=== PATIENT | male | born 1995 | race Caucasian/White ===

== ENCOUNTER 2021-02-18 07:16 | Day surgery (SDC) | payer OTHER ==
[~2021-02-18 07:16] MED LIST: Lactated Ringers 1,000 ML IV SCH; Lidocaine 1%/Sod Bicarbonate in NS 8.4% 1 ML Syringe IDERM PRN; Sodium Chloride 0.9% 10 ML Syringe FLUSH PRN
--- NOTE | 2021-02-18 07:41 | PCM.PREANE ---
Preanesthetic Assessment - Anesthesia/Transfusion/Family Hx Anesthesia History: No Prior Anesthesia Family History of Anesthesia Reaction: No Transfusion History: No Prior Transfusion(s) Intubation History: Unknown - Review of Systems General: No Symptoms Pulmonary: No Symptoms Cardiovascular: No Symptoms Neurological: No Symptoms Other: Reports: None - Physical Assessment NPO Status Date: 02/17/21 NPO Status Time: 21:00 ASA Class: 3 Mental Status: Alert & Oriented x3 Dentition: Reports: Normal Dentition Thyro-Mental Finger Breadths: 3 Mouth Opening Finger Breadths: 3 ROM/Head Extension: Full Lungs: Clear to Auscultation, Normal Respiratory Effort - Allergies Allergies/Adverse Reactions: Allergies Allergy/AdvReac Type Severity Reaction Status Date / Time No Known Allergies Allergy Verified 02/17/21 14:27 - Acknowledgements Anesthesia Type Planned: MAC Pt an Appropriate Candidate for the Planned Anesthesia: Yes Alternatives and Risks of Anesthesia Discussed w Pt/Guardian: Yes Pt/Guardian Understands and Agrees with Anesthesia Plan: Yes PreAnesthesia Questionnaire HEENT History: Reports: Allergic Rhinitis, Other (See Below) Other HEENT History: eustachian tube dysfunction, wears glasses, has contacts Cardiovascular History: Reports: High Cholesterol Respiratory History: Reports: Other (See Below) Other Respiratory History: snoring Gastrointestinal History: Reports: GERD, Other (See Below) Other Gastrointestinal History: dysphagia Genitourinary History: Reports: None SLIP COVER ESTIMATOR History: Reports: None Musculoskeletal History: Reports: None Neurological History: Reports: None Psychiatric History: Reports: Anxiety, Depression, Other (See Below) Other Psychiatric History: insomnia Endocrine/Metabolic History: Reports: Obesity/BMI 30+, Vitamin D Deficiency Hematologic History: Reports: None Immunologic History: Reports: None Oncologic (Cancer) History: Reports: None Dermatologic History: Reports: None - Infectious Disease History Infectious Disease History: Reports: None - Past Surgical History Head Surgeries/Procedures: Reports: None HEENT Surgical History: Reports: None Cardiovascular Surgical History: Reports: None Respiratory Surgical History: Reports: None GI Surgical History: Reports: None Female Surgical History: Reports: None Male Surgical History: Reports: None Endocrine Surgical History: Reports: None Neurological Surgical History: Reports: None Musculoskeletal Surgical History: Reports: None Oncologic Surgical History: Reports: None Dermatological Surgical History: Reports: None - SUBSTANCE USE Tobacco Use Status *Q: Current Every Day Tobacco User Tobacco Use Within Last Twelve Months: Snuff/Dip - HOME MEDS Home Medications: Home Meds Ascorbic Acid [Vitamin C] 1,000 mg PO DAILY 02/17/21 [History] Calcium Carbonate [Tums] 500 mg PO BID PRN 02/17/21 [History] Cholecalciferol (Vitamin D3) [Vitamin D3] 5,000 unit PO DAILY 02/17/21 [History] Fluticasone Propionate [Flonase] 1 dose NASBOTH ASDIRECTED PRN 02/17/21 [History] Loratadine [Claritin] 10 mg PO DAILY 02/17/21 [History] Multivitamin 1 tab PO DAILY 02/17/21 [History] Pantoprazole Sodium [Protonix] 40 mg PO DAILY 02/17/21 [History] Venlafaxine [Venlafaxine HCl ER] 150 mg PO DAILY 02/17/21 [History] traZODone HCl [Trazodone HCl] 50 - 100 mg PO BEDTIME PRN 02/17/21 [History] - CURRENT (IN HOUSE) MEDS Current Meds: Current Medications Lactated Ringer's (Ringers, Lactated) 1,000 mls @ 125 mls/hr IV ASDIRECTED TONE Stop: 02/18/21 23:00 Lidocaine/Sodium Bicarbonate (Lidocaine 1%/Sod Bicarbonate In Ns 8.4% 1 Ml Syringe) 0.25 ml IDERM ONETIME PRN PRN Reason: Prior to IV Start Stop: 02/18/21 18:00 Sodium Chloride (Sodium Chloride 0.9% 10 Ml Syringe) 10 ml FLUSH ASDIRECTED PRN PRN Reason: Keep Vein Open Stop: 02/18/21 18:00
[2021-02-18] MEDS ORDERED: Propofol 200 MG/20 ML SDV ONE ×2 (08:17→08:30)
[2021-02-18] MEDS ORDERED: Lidocaine 1% 4 ML ONE (08:17)
[2021-02-18] MEDS ORDERED: fentaNYL 100 MCG/2 ML SDV ONE (08:18)
[2021-02-18] MEDS ORDERED: Midazolam 1 MG/ML 2 ML SDV ONE (08:18)
--- NOTE | 2021-02-18 09:17 | PCM48HPAN ---
Post Anesthesia Note - EVALUATION WITHIN 48HRS OF ANESTHETIC Vital Signs in Normal Range: Yes Patient Participated in Evaluation: Yes Respiratory Function Stable: Yes Airway Patent: Yes Cardiovascular Function Stable: Yes Hydration Status Stable: Yes Pain Control Satisfactory: Yes Nausea and Vomiting Control Satisfactory: Yes Mental Status Recovered: Yes Vital Signs: Last Vital Signs Temp 36.1 C 02/18/21 07:20 Pulse 71 02/18/21 07:20 Resp 18 02/18/21 07:20 BP 122/77 02/18/21 07:20 Pulse Ox 95 02/18/21 07:20
--- NOTE | 2021-02-18 09:18 | PCM.PRNOTE ---
- Free Text/Narrative Note: Date: 02/18/2021 Procedure: diagnostic esophagogastroduodenoscopy Indication: longstanding medicall refractory reflux symptoms with dysphagia Endoscopist: Jose Stone MD Findings: sliding hiatal hernia with probable short-segment Colon's and mild distal esophageal inflammatory changes Detailed Report: The patient was taken to the endoscopy suite and placed in left lateral decubitus position. Timeout was performed and monitored anesthesia care was initiated. A bite-block was placed and the endoscope was inserted into the mouth. The scope was advanced to the second portion of the duodenum with ease. Duodenal mucosa appeared normal. A sample biopsy from the bulb was obtained with cold forceps. The scope was withdrawn into the stomach. The antrum appeared normal. A biopsy of antral mucosa was obtained with cold forceps. There was no evidence of ulceration or gastritis. On retroflexion, the sliding hiatal hernia that was noted on upper GI study was appreciated, although the impression of the diaphragmatic crura was snug against the endoscope. The scope was withdrawn into the distal esophagus. 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 A biopsy of this tissue was obtained with cold forceps. Proximal to this, there appeared to be mild inflammatory change of the esophageal mucosa. A sample biopsy was obtained with cold forceps. Air was suctioned from the stomach and esophagus as the scope was withdrawn. The patient tolerated the procedure well.
== END 2021-02-18 09:56 | disposition home or self-care (01) ==
LOC: JD.SDS 07:16
PROVIDERS: ATTEND Surgery
DX: K29.90 Gastroduodenitis, unspecified, without bleeding (principal); K20.90 Esophagitis, unspecified without bleeding; R13.10 Dysphagia, unspecified; K44.9 Diaphragmatic hernia without obstruction or gangrene; K22.70 Barrett's esophagus without dysplasia; G44.229 Chronic tension-type headache, not intractable; K21.9 Gastro-esophageal reflux disease without esophagitis; E78.2 Mixed hyperlipidemia; E66.9 Obesity, unspecified; E55.9 Vitamin D deficiency, unspecified; F17.210 Nicotine dependence, cigarettes, uncomplicated; Z79.899 Other long term (current) drug therapy
CPT/HCPCS: 43239; J2250; J2704; J3010; J7120; 00731